=== PATIENT | male | born 1965 | race African-American/Black ===

== ENCOUNTER 2016-05-17 18:15 | Emergency (ER) | payer MEDICAID ==
[~2016-05-17] VITALS: Ht 154.9 cm; Wt 90.7 kg
[2016-05-17 18:22] VITALS: BP 183/97; PULSE 69; RESP 18; TEMP 98.3; O2SAT 98
--- NOTE | 2016-05-17 18:22 | NUR ---
Patient to ER bed 08 to gown for evaluation. Side rails up. Report given to Ladan
--- NOTE | 2016-05-17 18:25 | NUR ---
Pt brought by self, A&Ox4,pt c/o SOB, headache,nausea, chest pain and R arm pain,skin pink and warm, cap refill <3, VSS, ambulatory, radial pulses equal and normal.
--- NOTE | 2016-05-17 18:30 | NUR ---
Dr Humphrey at bedside examining patient
[2016-05-17] MEDS ORDERED: METOCLOPRAMIDE HCL 10 MG/2 ML VIAL IVP ONE (18:45)
[2016-05-17] MEDS ORDERED: DIPHENHYDRAMINE INJ 50 MG/ML VIAL IVP ONE (18:45)
[2016-05-17] MEDS ORDERED: METOCLOPRAMIDE HCL 10 MG/2 ML VIAL ONE (19:20)
[2016-05-17 19:49] LABS: BASOPHILS # (AUTO) 0.1 K/uL (0.0-0.2); BASOPHILS % (AUTO) 0.7 % (0.0-2.0); EOSINOPHILS # (AUTO) 0.1 K/uL (0.0-0.4); EOSINOPHILS % (AUTO) 1.1 % (0.0-4.0); HEMATOCRIT 42.7 % (36-54); HEMOGLOBIN 14.2 g/dL (14.0-18.0); LYMPHOCYTES # (AUTO) 2.6 K/uL (1.0-5.5); LYMPHOCYTES % (AUTO) 34.9 % (20.5-51.5); MEAN CORPUSCULAR HEMOGLOBIN 28 pg (27-31); MEAN CORPUSCULAR HGB CONC 33 % (32-36); MEAN CORPUSCULAR VOLUME 83 fL (79.0-98.0); MONOCYTES # (AUTO) 0.6 K/uL (0.0-1.0); MONOCYTES % (AUTO) 8.2 % (1.7-9.3); NEUTROPHILS % (AUTO) 55.1 % (40.0-70.0); PLATELET COUNT (AUTO) 262 K/uL (130-430); RED BLOOD CELL COUNT(AUTO) 5.15 MIL/uL (4.2-6.2); RED CELL DISTRIBUTION WIDTH 13.3 % (9.0-15.0); WHITE BLOOD COUNT (AUTO) 7.4 K/uL (4.8-10.8)
[2016-05-17 19:51] LABS: CALCIUM 9.1 mg/dL (8.4-11.0); CREATININE 1.15 mg/dL (0.55-1.30); POTASSIUM 3.8 mmol/L (3.5-5.1)
[2016-05-17 19:56] LABS: ALBUMIN 3.7 g/dL (3.4-4.8); PROTHROMBIN TIME 10.9 SECS (9.5-12.5); TOTAL BILIRUBIN 0.5 mg/dL (0.0-1.0); TOTAL PROTEIN, SERUM 7.6 g/dL (6.4-8.3)
[2016-05-17] MEDS ORDERED: NACL 0.9% 1,000 ML IV ONE (20:23)
[2016-05-17] MEDS ORDERED: IOHEXOL 100 ML IV ONE (21:04)
[2016-05-17] MEDS ORDERED: cloNIDine HCL 0.1 MG TABLET PO ONE (22:00)
[2016-05-17 22:56] VITALS: BP 145/77; PULSE 64; RESP 16; TEMP 98.9; O2SAT 99
--- NOTE | 2016-05-17 22:56 | NUR ---
Patient given written and verbal discharge instructions and verbalizes understanding. ER MD Dr. George discussed with patient the results and treatment provided. Patient in stable condition. ID arm band removed. IV catheter removed intact and dressing applied, no active bleeding. Rx of Lisinopril 20 mg given. Patient educated on pain management and to follow up with PMD. Pain Scale 0/10. Opportunity for questions provided and answered.
[2016-05-17] MEDS ORDERED: hydrALAZINE HCL 20 MG/ML VIAL IVP ONE (23:00)
== END 2016-05-17 22:56 | disposition home or self-care (01) ==
LOC: SED 18:15
DX: I10 Essential (primary) hypertension (principal); M54.2 Cervicalgia; Z88.5 Allergy status to narcotic agent
CPT/HCPCS: 36415; 70450; 70498; 71010; 80053; 82550; 83880; 84484; 85025; 85610; 85730; 93005; 96361; 96374; 96375; 99285; J1200; J2765; J7030; Q9967

== ENCOUNTER 2016-11-18 01:28 | Emergency (ER) | payer MEDICAID ==
[~2016-11-18] VITALS: Ht 175.3 cm; Wt 89.8 kg
[2016-11-18 01:32] VITALS: BP_SYST 164
--- NOTE | 2016-11-18 01:32 | NUR ---
Patient to ER bed 04 to gown for evaluation. Side rails up.
--- NOTE | 2016-11-18 01:45 | NUR ---
Patient ambulates to bedside. Patient reports that he has a spider bite from 11/16/2016 that has been getting worse. Pain 09/20, "pinching". Redness and swelling noted to left elbow. Patient's Vital Signs are normal. No other complaints/injuries per patient or as noted. Will continue to monitor.
--- NOTE | 2016-11-18 02:12 | NUR ---
Dr. George at bedside examining patient
[2016-11-18] MEDS ORDERED: CEPHALEXIN 500 MG CAPSULE PO ONE (02:15)
[2016-11-18 02:27] VITALS: BP_SYST 150
--- NOTE | 2016-11-18 02:27 | NUR ---
Patient given written and verbal discharge instructions and verbalizes understanding. ER MD discussed with patient the results and treatment provided. Patient in stable condition. ID arm band removed. Rx of keflex given. Patient educated on pain management and to follow up with PMD in 2-3 days. Pain Scale 0/10 Opportunity for questions provided and answered.
== END 2016-11-18 02:27 | disposition home or self-care (01) ==
LOC: SED 01:28
DX: S50.362A Insect bite (nonvenomous) of left elbow, initial encounter (principal); L03.114 Cellulitis of left upper limb; I10 Essential (primary) hypertension; Z88.5 Allergy status to narcotic agent; W57.XXXA Bitten or stung by nonvenomous insect and other nonvenomous arthropods, initial encounter; Y93.89 Activity, other specified; Y92.89 Other specified places as the place of occurrence of the external cause; Y99.8 Other external cause status
CPT/HCPCS: 99283

== ENCOUNTER 2017-06-01 20:04 | Emergency (ER) | payer MEDICAID ==
[~2017-06-01] VITALS: Ht 175.3 cm; Wt 93.0 kg
[2017-06-01 20:13] VITALS: BP_SYST 187
== END 2017-06-01 20:55 | disposition home or self-care (01) ==
LOC: SED 20:04
DX: S79.911A Unspecified injury of right hip, initial encounter (principal); I10 Essential (primary) hypertension; Z88.5 Allergy status to narcotic agent; X58.XXXA Exposure to other specified factors, initial encounter; Y93.89 Activity, other specified; Y92.89 Other specified places as the place of occurrence of the external cause; Y99.8 Other external cause status
CPT/HCPCS: 99281

== ENCOUNTER 2019-04-23 14:44 | Emergency (ER) | payer MEDICAID ==
[~2019-04-23] VITALS: Ht 175.3 cm; Wt 89.4 kg
--- NOTE | 2019-04-23 14:58 | NUR ---
Patient to ER bed 06 to gown for evaluation. Side rails up. Report given to TED Latif.
--- NOTE | 2019-04-23 15:00 | NUR ---
Patient arrived in the ED c/o chest pain and shortness of breath that started a month ago. Denied any fevers, chills, nausea, or vomiting. Patient is alert and oriented x4, respirations even and unlabored, speaking in full sentences, ambulating with a steady gait. VSS, pain level 4/10. Informed of approximate wait time. Instructed to notify ED staff for any changes in condition or worsening of symptoms. Patient verbalized understanding.
[2019-04-23 15:03] VITALS: BP_SYST 147
--- NOTE | 2019-04-23 15:03 | NUR ---
ECG done at bedside as ordered by Dr. Giron. Patient tolerated the procedure well. Report given to
--- NOTE | 2019-04-23 15:03 | NUR ---
ER Dr. Giron at bedside examining patient.
[2019-04-23] MEDS ORDERED: KETOROLAC TROMETHAMINE 60 MG/2 ML VIAL IM ONE (15:15)
--- NOTE | 2019-04-23 15:29 | NUR ---
Radiology at bedside for CXR
--- NOTE | 2019-04-23 15:37 | NUR ---
60 mg IM Toradol given at this time for 06/21 chest pain. Addendum: 04/23/19 at 1540 by [email or web address] Toradol given at L deltoid.
[2019-04-23 15:59] LABS: BASOPHILS % (AUTO) 0.6 % (0.0-2.0); EOSINOPHILS # (AUTO) 0.1 K/uL (0.0-0.4); HEMATOCRIT 42.6 % (36-54); HEMOGLOBIN 14.7 g/dL (14.0-18.0); LYMPHOCYTES # (AUTO) 2.6 K/uL (1.0-5.5); LYMPHOCYTES % (AUTO) 36.2 % (20.5-51.5); MEAN CORPUSCULAR HEMOGLOBIN 29 pg (27-31); MEAN CORPUSCULAR HGB CONC 35 % (32-36); MEAN CORPUSCULAR VOLUME 83 fL (79.0-98.0); MONOCYTES # (AUTO) 0.7 K/uL (0.0-1.0); MONOCYTES % (AUTO) 10.1 % (1.7-9.3); NEUTROPHILS # (AUTO) 3.7 K/uL (1.8-7.7); NEUTROPHILS % (AUTO) 51.1 % (40.0-70.0); PLATELET COUNT (AUTO) 232 K/uL (130-430); RED BLOOD CELL COUNT(AUTO) 5.13 MIL/uL (4.2-6.2); RED CELL DISTRIBUTION WIDTH 15.1 % (9.0-15.0); WHITE BLOOD COUNT (AUTO) 7.3 K/uL (4.8-10.8)
[2019-04-23] MEDS ORDERED: fentaNYL CITRATE/PF 100 MCG/2 ML AMP IM ONE (16:15)
[2019-04-23 16:24] LABS: CALCIUM 8.8 mg/dL (8.4-11.0); CREATININE 1.07 mg/dL (0.55-1.30); POTASSIUM 3.9 mmol/L (3.5-5.1)
[2019-04-23 16:28] LABS: ALBUMIN 3.4 g/dL (3.4-4.8); TOTAL BILIRUBIN 1.3 mg/dL (0.0-1.0)
[2019-04-23 16:58] LABS: CKMB RELATIVE INDEX 1.3 (0.0-2.9); CREATINE KINASE MB 8.1 ng/mL (0-3.6)
[2019-04-23 17:14] VITALS: BP_SYST 147
--- NOTE | 2019-04-23 17:15 | NUR ---
Patient given written and verbal discharge instructions and verbalizes understanding. ER MD discussed with patient the results and treatment provided. Patient in stable condition. ID arm band removed. Rx of Prednisone, Tramadol and Naproxen given. Patient educated on pain management and to follow up with PMD. Pain Scale 0/10. Opportunity for questions provided and answered. Medication side effect fact sheet provided.
== END 2019-04-23 17:14 | disposition home or self-care (01) ==
LOC: SED 14:44
DX: R07.89 Other chest pain (principal); I10 Essential (primary) hypertension; Z88.5 Allergy status to narcotic agent
CPT/HCPCS: 36415; 71045; 80053; 82550; 82553; 84484; 85025; 93005; 96372; 99285; J1885

== ENCOUNTER 2020-10-04 00:47 | Inpatient (IN) | payer MEDICAID, SELFPAY ==
[2020-10-04] VITALS (9 sets, daily range): BP systolic 132–194
[~2020-10-04] VITALS: Ht 175.3 cm; Wt 93.4 kg
--- NOTE | 2020-10-04 00:55 | NUR ---
Patient triaged and placed in waiting room. VSS and patient appears in no acute distress at this time. Accompanied by FAM MEMBER, awaiting available bed, and MD notified of need for MSE.
[2020-10-04 01:43] LABS: EOSINOPHILS # (AUTO) 0.2 K/uL (0.0-0.4)
[2020-10-04 01:45] LABS: CALCIUM 9.1 mg/dL (8.4-11.0); CREATININE 1.36 mg/dL (0.55-1.30); POTASSIUM 3.7 mmol/L (3.5-5.1)
[2020-10-04 01:47] LABS: BASOPHILS # (AUTO) 0.1 K/uL (0.0-0.2); BASOPHILS % (AUTO) 0.8 % (0.0-2.0); EOSINOPHILS % (AUTO) 2.1 % (0.0-4.0); HEMATOCRIT 41.9 % (36-54); HEMOGLOBIN 14.7 g/dL (14.0-18.0); LYMPHOCYTES # (AUTO) 2.9 K/uL (1.0-5.5); MEAN CORPUSCULAR HEMOGLOBIN 29 pg (27-31); MEAN CORPUSCULAR HGB CONC 35 % (32-36); MEAN CORPUSCULAR VOLUME 82 fL (79.0-98.0); MONOCYTES # (AUTO) 0.6 K/uL (0.0-1.0); MONOCYTES % (AUTO) 7.6 % (1.7-9.3); NEUTROPHILS # (AUTO) 3.9 K/uL (1.8-7.7); NEUTROPHILS % (AUTO) 51.5 % (40.0-70.0); PLATELET COUNT (AUTO) 252 K/uL (130-430); RED BLOOD CELL COUNT(AUTO) 5.12 MIL/uL (4.2-6.2); RED CELL DISTRIBUTION WIDTH 14.7 % (9.0-15.0); WHITE BLOOD COUNT (AUTO) 7.6 K/uL (4.8-10.8)
[2020-10-04 01:56] LABS: ALBUMIN 3.3 g/dL (3.4-4.8); TOTAL BILIRUBIN 0.8 mg/dL (0.0-1.0)
--- NOTE | 2020-10-04 02:14 | NUR ---
Placed in room 4 . Placed on manager of corporate communications, blood pressure machine and pulse oximeter. To gown for exam. Side rails up. Report given to OBED JEAN.
--- NOTE | 2020-10-04 02:20 | NUR ---
PATIENT AAOX4 AND AMBULATORY FROM HOME C/O ABDOMINAL EPIGASTRIC PAIN X 2 YEARS. LAST NIGHT PATIENT STATED HE WAS SHORT OF BREATH WHEN LAYING DOWN. PER PATIENT HE TOOK TUMS @9:35 PM AND TOOK THE PAIN AWAY. CURRENTLY STATING NO PAIN, SOB, OR CHEST PAIN AT THIS TIME. VSS.
--- NOTE | 2020-10-04 03:00 | NUR ---
DR. THOMAS AT BEDSIDE FOR EVALUATION.
--- NOTE | 2020-10-04 03:29 | NUR ---
PATIENT TAKEN TO CT SCAN VIA AMBULATORY BY RADIOLOGY STAFF.
[2020-10-04] MEDS ORDERED: cefTRIAXone 1 GM in D5W 50 ML IV ONE (05:00)
[2020-10-04] MEDS ORDERED: cefTRIAXone 1 GM VIAL ONE (05:20)
--- NOTE | 2020-10-04 05:21 | NUR ---
Patient will be admitted to care of [facility]. Admitted to TELE unit. ROOM ASSINGMENT PENDING. Belongings list completed. Complete and up to date summary report printed. SBAR report to be given at bedside with opportunity for questions.
--- NOTE | 2020-10-04 05:30 | NUR ---
COVID SWAB COLLECTED AND SENT TO LAB FOR ANALYSIS
--- NOTE | 2020-10-04 05:46 | NUR ---
# 18 gauge angiocath placed to LAC. Use of asceptic technique. Opsite placed over site. Blood return noted. Flushed with 10 cc of normal saline. No evidence of infiltration noted. Patient tolerated well.
--- NOTE | 2020-10-04 06:23 | NUR ---
Medication reconciliation completed with information provided by PATIENT. Any prior medication reconciliation on file was reviewed and corrected.
--- NOTE | 2020-10-04 06:23 | NUR ---
Patient's code status is FULL CODE paperwork completed and placed in chart.
[2020-10-04] MEDS ORDERED: L.RH1CAP PO (06:25)
[2020-10-04] MEDS ORDERED: FAMO1TAB29 PO (06:25)
--- NOTE | 2020-10-04 07:12 | NUR ---
REPORT GIVEN TO TED POWELL WHO WILL ASSUME ALL CARE FOR PATIENT.
--- NOTE | 2020-10-04 08:18 | NUR ---
Patient will be admitted to care of [facility]. Admitted to Tele unit. Will go to room 106B. Belongings list completed. Complete and up to date summary report printed. SBAR report to be given at bedside with opportunity for questions.
--- NOTE | 2020-10-04 08:32 | NUR ---
ADMIT NOTE Received pt from ER to the floor with a diagnosis of PNEUMONIA. Admission process initiated. patient oriented to pain management, safety and call light-teach back done.
[2020-10-04] MEDS ORDERED: cefTRIAXone 1 GM in D5W 50 ML IV SCH (09:00)
--- NOTE | 2020-10-04 09:08 | NUR ---
0833 arrived via gurney, alert, oriented, and walk to bathroom, no assistance. knows while being hospitalized, awaiting Zithromax ivp so patient can get what he needs. bp on arrival 194/142- 217/121, hr 82 claimed he has not taken any antihypertensive meds since Covid took place, only treated self with traditional ways, " drank lots of lemon juice, that is it" attending paged x 1 for the high bp.
[2020-10-04] MEDS ORDERED: HYDROCHLOROTHIAZIDE 25 MG TABLET (HCTZ) PO ONE (10:30)
[2020-10-04] MEDS ORDERED: CARVEDILOL 25 MG TABLET (COREG) PO ONE (10:30)
[2020-10-04] MEDS ORDERED: LOSARTAN POTASSIUM 25 MG TABLET PO ONE (10:30)
[2020-10-04] MEDS: AZITHROMYCIN 500 MG in NS 250 ML IV SCH (10:40)
[2020-10-04 16:42] LABS: BARBITURATE, URINE NEGATIVE (NEG <=200); BENZODIAZEPINE, URINE NEGATIVE (NEG <=150); CANNABINOID, URINE NEGATIVE (NEG <=50); COCAINE, URINE NEGATIVE (NEG <=150); METHAMPHETAMINES SCREEN,URINE NEGATIVE (NEG <=500); OPIATE, URINE NEGATIVE (NEG <=100); PHENCYCLIDINE SCREEN,URINE NEGATIVE (NEG <=25); UR TRICYCLIC ANTIDEPRESSANTS NEGATIVE (NEG <=300); URINE AMPHETAMINE NEGATIVE (NEG <=500); URINE METHADONE NEGATIVE (NEG <=200); URINE OXYCODONE SCREEN NEGATIVE (NEG <=100); URINE PROPOXYPHENE SCREEN NEGATIVE (NEG <=300)
--- NOTE | 2020-10-04 19:20 | NUR ---
CHANGE OF SHIFT; endorsed by day shift, no distress. admitted fro uncontrolled HTN/possible PNA. call light at bedside.
--- NOTE | 2020-10-04 19:55 | NUR ---
NOTES: pt. awake, sitting at the edge of the bed, visitor at bedside. on room air, denies any pain. VS checked. BP 182/111.
[2020-10-04] MEDS: CARVEDILOL 25 MG TABLET (COREG) PO SCH (20:05)
--- NOTE | 2020-10-04 20:05 | NUR ---
NOTES: due BP med given. pt. ambulates to the restroom. IV lock on rt. antecubital. on quality assurance monitor final and shows sinu rhythm. .
[2020-10-04] MEDS: ENOXAPARIN SODIUM 40 MG/0.4 ML SYRINGE SUBCUT SCH (22:00)
--- NOTE | 2020-10-04 22:30 | NUR ---
NOTES: rechecked BP 137/77 HR 57. no complaints, pt. educated regarding meds and diet about HTN. pt. ambulated to the restroom and voided. call light at bedside.
--- NOTE | 2020-10-05 00:17 | NUR ---
NOTES: pt. sleeping when checked. no acute distress.
--- NOTE | 2020-10-05 02:05 | NUR ---
NOTES: condition observed. continue to monitor.
--- NOTE | 2020-10-05 05:15 | NUR ---
NOTES: pt. awakened for am lab draw but refused. EKG done at bedside. pt. informed about urine collection, container in the restroom. call light within reach.
--- NOTE | 2020-10-05 06:40 | NUR ---
CLOSING NOTES; pt. went back to sleep, denies any chest pain nor discomfort. IV lock patent. for further care and assistance. call light within reach.
--- NOTE | 2020-10-05 07:37 | NUR ---
OPENING NOTES: RECEIVED PATIENT FROM GROUP UNDERWRITER NURSE. PATIENT IS AWAKE SITTING IN BED EATING BREAKFAST. TOLERATED OXYGEN ON ROOM AIR WITH NO DISTRESS NOTED. IV LINE PATENT AND INTACT WITH NO INFILTRATION NOTED. PATIENT STABLE AT THIS TIME. SAFETY, FALL, AND ASPIRATION PRECAUTIONS ARE IN PLACE. BED LOCKED IN LOWEST POSITION AND CALL LIGHT IN REACH. WILL CONTINUE TO MONITOR PATIENT FOR ANY CHANGES.
[2020-10-05 07:45] LABS: BARBITURATE, URINE NEGATIVE (NEG <=200); BENZODIAZEPINE, URINE NEGATIVE (NEG <=150); CANNABINOID, URINE NEGATIVE (NEG <=50); COCAINE, URINE NEGATIVE (NEG <=150); METHAMPHETAMINES SCREEN,URINE NEGATIVE (NEG <=500); OPIATE, URINE NEGATIVE (NEG <=100); PHENCYCLIDINE SCREEN,URINE NEGATIVE (NEG <=25); UR TRICYCLIC ANTIDEPRESSANTS NEGATIVE (NEG <=300); URINE AMPHETAMINE NEGATIVE (NEG <=500); URINE METHADONE NEGATIVE (NEG <=200); URINE OXYCODONE SCREEN NEGATIVE (NEG <=100); URINE PROPOXYPHENE SCREEN NEGATIVE (NEG <=300)
[2020-10-05 08:00] VITALS: BP_SYST 175
[2020-10-05] MEDS: cefTRIAXone 1 GM in D5W 50 ML IV SCH (08:56)
[2020-10-05] MEDS: HYDROCHLOROTHIAZIDE 25 MG TABLET (HCTZ) PO SCH (08:57)
[2020-10-05] MEDS: CARVEDILOL 25 MG TABLET (COREG) PO SCH (08:58)
[2020-10-05] MEDS ORDERED: LOSARTAN POTASSIUM 25 MG TABLET PO SCH (09:00)
[2020-10-05] MEDS ORDERED: lisinopriL 20 MG TABLET PO ONE (09:30)
[2020-10-05] MEDS: AZITHROMYCIN 500 MG in NS 250 ML IV SCH (09:59)
[2020-10-05 12:00] VITALS: BP_SYST 130
[2020-10-05 16:00] VITALS: BP_SYST 143
--- NOTE | 2020-10-05 16:00 | NUR ---
PATIENT REFUSES LAB WORKOUT. EXPLAINED THE RISK AND BENEFITS. VERBALIZED UNDERSTANDING.
--- NOTE | 2020-10-05 18:45 | NUR ---
CLOSING NOTES: PATIENT IS AWAKE SITTING IN BED EATING BREAKFAST. TOLERATED OXYGEN ON ROOM AIR WITH NO DISTRESS NOTED. IV LINE PATENT AND INTACT WITH NO INFILTRATION NOTED. PATIENT STABLE AT THIS TIME. SAFETY, FALL, AND ASPIRATION PRECAUTIONS REMAINED IN PLACE. BED LOCKED IN LOWEST POSITION AND CALL LIGHT IN REACH. WILL ENDORSE PATIENT CARE TO ONCOMING PRODUCT SAFETY TEST ENGINEER NURSE.
--- NOTE | 2020-10-05 19:55 | NUR ---
CHANGE OF SHIFT; pt. checked, up at bedside and playing on his cell phone. denies any discomfort and verbalized he had an interesting day. HR went down on low 40's today, MD aware and reduce dose of Coreg. VS checked. with visitor at bedside. call light within reach.
[2020-10-05 20:00] VITALS: BP_SYST 158
--- NOTE | 2020-10-05 21:00 | NUR ---
NOTES; Dr. Gastelumium here and talked to pt.
[2020-10-05] MEDS: CARVEDILOL 12.5 MG TABLET (COREG) PO SCH (21:39)
[2020-10-05] MEDS: ENOXAPARIN SODIUM 40 MG/0.4 ML SYRINGE SUBCUT SCH (21:45)
--- NOTE | 2020-10-05 21:45 | NUR ---
NOTES: due med given, verbalizing about his BP medications, it seems like he is not getting the right one and MD wont listen. pt. venting out and tried to listen to him Coreg 12.5 mg po given.
[2020-10-05 22:45] VITALS: BP_SYST 164
--- NOTE | 2020-10-05 22:45 | NUR ---
NOTES: pt. still awake, sitting at the edge of the bed, rechecked BP 164/101, pt. asymptomatic, will inform Dr. Mccarty.
--- NOTE | 2020-10-05 23:00 | NUR ---
I PAGED DR. PABON @ [phone] ON HIS PERSONAL PAGER # [phone]
--- NOTE | 2020-10-05 23:20 | NUR ---
NOTES: called exchange of ium x2, still waiting for him to call back.
--- NOTE | 2020-10-05 23:20 | NUR ---
CALLED DR. PABON @ [phone] ON HIS PERSONAL PAGER [phone] THIS IS THE SECOND CALL
--- NOTE | 2020-10-05 23:50 | NUR ---
CALLED DR. PABON @ [phone] THIS IS THE THIRD CALL HIS PERSONAL PAGER NUMBER IS [phone]
--- NOTE | 2020-10-05 23:54 | NUR ---
NOTES: pt. checked and already fell asleep. still waiting for Dr. andres to call back.
--- NOTE | 2020-10-06 03:00 | NUR ---
NOTES: continue observed. sinus liang on the monitor.
--- NOTE | 2020-10-06 06:51 | NUR ---
CLOSING NOTES; pt. checked still asleep soundly. continue to monitor. no complaints noted. IV lock patent. for further observation. call light at bedside.
--- NOTE | 2020-10-06 08:00 | NUR ---
AM NOTES TOOK BREAKFAST, PATIENT WAS UPSET WANTED TO GO HOME, STILL WITH ELEVATED BLOOD PRESSURE, DENIES HEADACHE, DIZZINESS. BP MEDS GIVEN TO PATIENT. SEEN BY DR REDMAN.
[2020-10-06 08:37] VITALS: BP_SYST 159
[2020-10-06] MEDS: cefTRIAXone 1 GM in D5W 50 ML IV SCH (08:39)
[2020-10-06] MEDS: HYDROCHLOROTHIAZIDE 25 MG TABLET (HCTZ) PO SCH ×2 (08:41→11:42)
[2020-10-06] MEDS: CARVEDILOL 12.5 MG TABLET (COREG) PO SCH (08:43)
[2020-10-06] MEDS ORDERED: lisinopriL 20 MG TABLET PO SCH (09:00)
[2020-10-06] MEDS ORDERED: hydrALAZINE HCL 25 MG TABLET PO ONE (10:15)
[2020-10-06] MEDS: AZITHROMYCIN 500 MG in NS 250 ML IV SCH (10:22)
--- NOTE | 2020-10-06 11:42 | NUR ---
CARE TAKEN OVER RIGHT NOW, CHECKED BP, 149/110, HCTZ 50MG PO GIVEN
[2020-10-06 13:23] VITALS: BP_SYST 149
[2020-10-06 15:43] VITALS: BP_SYST 152
--- NOTE | 2020-10-06 16:11 | NUR ---
SEEN BY ATTENDING, DISCHARGE TO HOME ORDER WRITTEN, WITH RX FOLLOWS: 1/Z PACK 2/LISINOPRIL 20MG ONE BY MOUTH, DAILY COREG 12.5, ONE BY MOUTH , IN THE MORNING, AND ONE IN THE EVENING HCTZ 50MG, ONE BY MOUTH DAILY RX EXPLAINED IN DETAILS, ALONG WITH MEDICATIONS SIDE EFFECT PAMPHLET GIVEN FOR READING PATIENT TO FOLLOW UP WITH PCP IN ONE WEEK FOR FURTHER INFO. READY TO LEAVE THE FLOOR AT 5P THIS EVENING, WHEN RIDE AVAILABLE., HL, MONITOR DISCONTINUED
--- NOTE | 2020-10-06 16:30 | NUR ---
Disposition code 01
[2020-10-06 17:31] VITALS: BP_SYST 152
[2020-10-06] MEDS ORDERED: hydrALAZINE HCL 25 MG TABLET PO SCH (21:00)
== END 2020-10-06 17:25 | disposition home or self-care (01) | DRG 194 ==
LOC: SED 00:47 → STU 05:18
PROVIDERS: ADMIT Family Medicine; ATTEND Family Medicine
DX: I11.0 Hypertensive heart disease with heart failure (principal); E44.1 Mild protein-calorie malnutrition; J40 Bronchitis, not specified as acute or chronic; I50.43 Acute on chronic combined systolic (congestive) and diastolic (congestive) heart failure; K21.9 Gastro-esophageal reflux disease without esophagitis; Z96.642 Presence of left artificial hip joint; Z20.822 Contact with and (suspected) exposure to COVID-19; Z88.5 Allergy status to narcotic agent; Z79.899 Other long term (current) drug therapy; Z91.14 Patient's other noncompliance with medication regimen; Z79.82 Long term (current) use of aspirin; Z82.49 Family history of ischemic heart disease and other diseases of the circulatory system; Z83.3 Family history of diabetes mellitus; Z86.16 Personal history of COVID-19; Z91.19 Patient's noncompliance with other medical treatment and regimen; N18.2 Chronic kidney disease, stage 2 (mild)
CPT/HCPCS: 36415; 71045; 76376; 80053; 80307; 82550; 82962; 83690; 83880; 84484; 85025; 93005; 93306; 96365; 99285; G0378; J0456; J0696; J1650; J7050; J7060